=== PATIENT | male | born 1995 | race Caucasian/White ===

== ENCOUNTER 2017-12-17 12:05 | Emergency (ER) | payer OTHER ==
[~2017-12-17] VITALS: Ht 180.3 cm; Wt 74.8 kg
[2017-12-17 12:10] VITALS: BP 133/90
--- NOTE | 2017-12-17 14:00 | NUR ---
Patient eloped from facility. ER MD notified.
== END 2017-12-17 14:00 | disposition left against medical advice (07) ==
LOC: ER 12:07
DX: R09.89 Other specified symptoms and signs involving the circulatory and respiratory systems (principal); R06.00 Dyspnea, unspecified; A63.0 Anogenital (venereal) warts; F17.200 Nicotine dependence, unspecified, uncomplicated
CPT/HCPCS: 99283; A4606; Z7610